=== PATIENT | male | born 1985 | race Hispanic/Latino ===

== ENCOUNTER 2022-11-09 08:56 | Emergency (ER) | payer SELFPAY ==
[2022-11-09] MEDS ORDERED: NA CHLORIDE 0.9% 1,000 ML ONE (09:31)
[2022-11-09] MEDS ORDERED: FAMOTIDINE 20 MG/2 ML VIAL IV ONE (09:31)
[2022-11-09] MEDS ORDERED: PANTOPRAZOLE 40 MG INJ ONE (09:31)
--- NOTE | 2022-11-09 09:41 | RAD REPORT ---
EXAM DESCRIPTION: RAD - Chest Pa And Lat (2 Views) - 11/09/2022 9:33 am CLINICAL HISTORY: dysphagia COMPARISON: Chest Pa And Lat (2 Views) dated 10/05/2015 FINDINGS: Lines: None. Lungs: No evidence of edema or pneumonia. Pleural: No significant pleural effusions or pneumothorax. Cardiac: The heart size is within normal limits. Mediastinum: Within normal limits. Bones: No acute fractures. Other: None IMPRESSION: No acute cardiopulmonary disease.
[2022-11-09 09:43] LABS: Specific Gravity 1.007 (1.005-1.030); Urine Bilirubin NEGATIVE (Negative); Urine Blood Negative (Negative); Urine Clarity Clear (Clear); Urine Color Colorless (Yellow); Urine Glucose NEGATIVE (Negative); Urine Protein NEGATIVE (Negative); Urine Urobilinogen Normal (Normal); Urine pH 6.5 (5.0-7.0)
[2022-11-09 09:43] LABS: Absolute Lymphocytes (CBC) 1.5 K/uL (0.7-4.9); Hematocrit 43.7 % (39.6-49.0); Lymphocytes % 33.1 % (15.3-44.8); MCV 84.2 fL (80-100); MPV 7.6 fL (7.6-11.3); RBC Red Blood Cell Count 5.18 M/uL (4.33-5.43)
[2022-11-09 10:02] LABS: Bilirubin Total 0.9 mg/dL (0.2-1.0); Potassium 3.7 mEq/L (3.5-5.1); Protein, Total 8.3 g/dL (6.4-8.2)
[2022-11-09 10:06] LABS: SARS-CoV-2 Antigen Rapid Res Negative (Negative)
--- NOTE | 2022-11-09 10:17 | ER ---
Nurse's Notes [facility] Name: Lennox Diaz Age: 37 yrs Sex: Male : 1985 Arrival Date: 11/09/2022 Time: 08:56 Bed 5 Private MD: Diagnosis: Gastro-esophageal reflux disease with esophagitis;Contact with and (suspected) exposure to other communicable diseases Presentation: 11/09 09:07 Chief complaint: Patient states: "I feel like food is not going all the way down to my jl7 stomach when I eat, like its stuck in my chest." Reports chest discomfort and burning with urination x 3 days. Coronavirus screen: At this time, the client does not indicate any symptoms associated with coronavirus-19. Ebola Screen: No symptoms or risks identified at this time. Initial Sepsis Screen: Does the patient meet any 2 criteria? No. Patient's initial sepsis screen is negative. Does the patient have a suspected source of infection? No. Patient's initial sepsis screen is negative. Risk Assessment: Do you want to hurt yourself or someone else? Patient reports no desire to harm self or others. Onset of symptoms was November 06, 2022. 09:07 Method Of Arrival: Ambulatory jl7 09:07 Acuity: CARLOS 3 jl7 Historical: - Allergies: 09:10 No Known Allergies; jl7 - Home Meds: 09:10 None [Active]; jl7 - PMHx: 09:10 Anxiety; Depression; jl7 - PSHx: 09:10 None; jl7 - Immunization history:: Adult Immunizations up to date. - Social history:: Smoking status: Patient denies any tobacco usage or history of. Screenin:26 [facility] ED Fall Risk Assessment (Adult) History of falling in the last 3 months, ld1 including since admission No falls in past 3 months (0 pts). Abuse screen: Denies threats or abuse. Denies injuries from another. Nutritional screening: No deficits noted. Tuberculosis screening: No symptoms or risk factors identified. Assessment: 09:26 General: Appears in no apparent distress. comfortable, Behavior is calm, cooperative, ld1 appropriate for age. Pain: Denies pain. Neuro: Level of Consciousness is awake, alert, obeys commands, Oriented to person, place, time, situation. Cardiovascular: Capillary refill < 3 seconds Patient's skin is warm and dry. Rhythm is sinus rhythm. Respiratory: Airway is patent Respiratory effort is even, unlabored. GI: Abdomen is flat, non-distended. : Reports burning with urination. EENT: No signs and/or symptoms were reported regarding the EENT system. Derm: No signs and/or symptoms reported regarding the dermatologic system. Musculoskeletal: No signs and/or symptoms reported regarding the musculoskeletal system. 11:01 Reassessment: DC HOME AMBULATORY. bp Vital Signs: 09:07 BP 148 / 87; Pulse 85; Resp 16; Temp 98.2; Pulse Ox 100% on R/A; Weight 90.72 kg; jl7 Height 5 ft. 9 in. ; Pain 2/10; 09:26 BP 148 / 87; Pulse 90; Resp 18; Pulse Ox 99% on R/A; ld1 11:01 BP 113 / 82; Pulse 72; Resp 16; Pulse Ox 100% ; bp 09:07 Body Mass Index 29.53 (90.72 kg, 175.26 cm) jl7 09:07 Pain Scale: Adult jl7 ED Course: 08:58 Patient arrived in ED. ts1 08:58 Roxi Corcoran FNP-C is PHCP. snw 08:58 Jong Chaudhari DO is Attending Physician. snw 09:02 Rodney Dang, RN is Primary Nurse. bp 09:10 Triage completed. jl7 09:10 Arm band placed on. jl7 09:26 Patient has correct armband on for positive identification. Placed in gown. Bed in low ld1 position. Call light in reach. Side rails up X2. residential monitor on. Pulse ox on. NIBP on. Door closed. Noise minimized. 09:26 Initial lab(s) drawn, by me, sent to lab. aw1 09:26 Urine collected: clean catch specimen, clear. aw1 09:26 Inserted saline lock: 20 gauge in right antecubital area, using aseptic technique. aw1 09:26 No provider procedures requiring assistance completed. ld1 09:35 Chest Pa And Lat (2 Views) XRAY In Process Unspecified. EDMS 09:40 SARS RAPID Sent. aw1 09:40 Strep Sent. aw1 09:40 COVID swab sent to lab. Strep swab sent to lab. aw1 11:01 IV discontinued, intact, bleeding controlled, No redness/swelling at site. Pressure bp dressing applied. Administered Medications: 09:25 Drug: NS 0.9% IV 1000 ml Route: IV; Rate: 1 bolus; Site: right antecubital; ld1 10:40 Follow up: IV Status: Completed infusion; IV Intake: 1000ml bp 09:25 Drug: Famotidine IVP 20 mg Route: IVP; Site: right antecubital; ld1 10:40 Follow up: Response: No adverse reaction bp 09:26 Drug: Pantoprazole IVP 40 mg Route: IVP; Site: right antecubital; ld1 10:40 Follow up: Response: No adverse reaction bp 10:30 Drug: Rocephin IV 1 grams Route: IV; Rate: calculated rate; Site: right antecubital; bp 11:03 Follow up: IV Status: Completed infusion; IV Intake: 1000ml bp 10:30 Drug: AZITHromycin PO 1 grams Route: PO; bp 11:03 Follow up: Response: No adverse reaction bp Medication: 11:01 VIS not applicable for this client. bp Intake: 10:40 IV: 1000ml; Total: 1000ml. bp 11:03 IV: 1000ml; Total: 2000ml. bp Outcome: 10:16 Discharge ordered by . snw 11:01 Discharged to home ambulatory. bp 11:01 Condition: stable 11:01 Discharge instructions given to patient, Instructed on discharge instructions, follow up and referral plans. medication usage, Demonstrated understanding of instructions, follow-up care, medications, Prescriptions given X 2. 11:03 Patient left the ED. bp Signatures: Dispatcher [employer] EDMS Roxi Corcoran, RESPIRATORY MEDICINE PHYSICIAN-C RESPIRATORY MEDICINE PHYSICIAN-Csnw Rock Mtz RN RN jl7 Rodney Dang RN RN bp Sandra Chaudhari RN RN ld1 Soraya Mcdonald PAS PAS ts1 Merced Kunz aw1
--- NOTE | 2022-11-09 10:18 | EDPHYS ---
Physician Documentation [facility] Name: Lennox Diaz Age: 37 yrs Sex: Male : 1985 Arrival Date: 11/09/2022 Time: 08:56 Bed 5 Private MD: ED Physician Jong Chaudhari HPI: 11/09 09:09 This 37 yrs old Male presents to ER via Unassigned with complaints of snw Difficulty Swallowing. 09:09 The patient presents with dysphagia, of both solids and liquids. The patient describes snw throat pain as pressure/slow to pass from lower esophagus, denies choking episode. Onset: The symptoms/episode began/occurred suddenly, 3 day(s) ago, and became worse just prior to arrival. Severity of symptoms: At their worst the symptoms were moderate. Associated signs and symptoms: The patient has no apparent associated signs or symptoms. The patient has not experienced similar symptoms in the past. The patient has not recently seen a physician. denies blood from above or below. Historical: - Allergies: 09:10 No Known Allergies; jl7 - Home Meds: 09:10 None [Active]; jl7 - PMHx: 09:10 Anxiety; Depression; jl7 - PSHx: 09:10 None; jl7 - Immunization history:: Adult Immunizations up to date. - Social history:: Smoking status: Patient denies any tobacco usage or history of. ROS: 09:10 Eyes: Negative for injury, pain, redness, and discharge, ENT: Negative for injury and snw discharge, + sore throat and lower esophagus 09:10 Neck: Negative for injury, pain, and swelling, Cardiovascular: Negative for chest pain, palpitations, and edema, Respiratory: Negative for shortness of breath, cough, wheezing, and pleuritic chest pain, Abdomen/GI: Negative for abdominal pain, nausea, vomiting, diarrhea, and constipation, Back: Negative for injury and pain, : Negative for injury, bleeding, discharge, and swelling, MS/Extremity: Negative for injury and deformity, Skin: Negative for injury, rash, and discoloration, Neuro: Negative for headache, weakness, numbness, tingling, and seizure, Psych: Negative for depression, anxiety, suicide ideation, homicidal ideation, and hallucinations. 09:10 Constitutional: Negative for fever, malaise, poor PO intake, weight loss. Exam: 09:08 Constitutional: This is a well developed, well nourished patient who is awake, alert, snw and in no acute distress. Head/Face: Normocephalic, atraumatic. Eyes: Pupils equal round and reactive to light, extra-ocular motions intact. Lids and lashes normal. Conjunctiva and sclera are non-icteric and not injected. Cornea within normal limits. Periorbital areas with no swelling, redness, or edema. Neck: Trachea midline, no thyromegaly or masses palpated, and no cervical lymphadenopathy. Supple, full range of motion without nuchal rigidity, or vertebral point tenderness. No Meningismus. Chest/axilla: Normal chest wall appearance and motion. Nontender with no deformity. No lesions are appreciated. Cardiovascular: Regular rate and rhythm with a normal S1 and S2. No gallops, murmurs, or rubs. Normal PMI, no JVD. No pulse deficits. Respiratory: Lungs have equal breath sounds bilaterally, clear to auscultation and percussion. No rales, rhonchi or wheezes noted. No increased work of breathing, no retractions or nasal flaring. Abdomen/GI: Soft, non-tender, with normal bowel sounds. No distension or tympany. No guarding or rebound. No evidence of tenderness throughout. Back: No spinal tenderness. No costovertebral tenderness. Full range of motion. MS/ Extremity: Pulses equal, no cyanosis. Neurovascular intact. Full, normal range of motion. Neuro: Awake and alert, GCS 15, oriented to person, place, time, and situation. Cranial nerves II-XII grossly intact. Motor strength 5/5 in all extremities. Sensory grossly intact. Cerebellar exam normal. Normal gait. 09:08 ENT: TM's: no acute changes, Nose: is normal, Mouth: is normal, Posterior pharynx: erythema, that is mild, Voice: is normal. 09:08 Skin: Appearance: normal except for affected area, Color: pale. 09:08 Psych: Behavior/mood is pleasant, cooperative, anxious, Affect is calm. Vital Signs: 09:07 BP 148 / 87; Pulse 85; Resp 16; Temp 98.2; Pulse Ox 100% on R/A; Weight 90.72 kg; jl7 Height 5 ft. 9 in. ; Pain 2/10; 09:26 BP 148 / 87; Pulse 90; Resp 18; Pulse Ox 99% on R/A; ld1 11:01 BP 113 / 82; Pulse 72; Resp 16; Pulse Ox 100% ; bp 09:07 Body Mass Index 29.53 (90.72 kg, 175.26 cm) 7 09:07 Pain Scale: Adult jl7 MDM: 08:59 Patient medically screened. snw 09:11 Differential diagnosis: Allergic rhinitis, bronchitis, group A strep tonsillitis, snw pharyngitis, retropharyngeal abcess viral syndrome. 10:20 Data reviewed: vital signs, nurses notes, lab test result(s), radiologic studies. snw Counseling: I had a detailed discussion with the patient and/or guardian regarding: the historical points, exam findings, and any diagnostic results supporting the discharge/admit diagnosis, the presence of at least one elevated blood pressure reading (>120/80) during this emergency department visit, lab results, radiology results, the need for outpatient follow up, to return to the emergency department if symptoms worsen or persist or if there are any questions or concerns that arise at home. Response to treatment: the patient's symptoms have mildly improved after treatment. Special discussion: Based on the patient's Hx, exam, and Dx evaluation, there is no indication for emergent surgery or inpatient Tx. It is understood by the patient/guardian that if the Sx's persist or worsen they need to return immediately for re-evaluation. I have referred the patient to see his PCP for further evaluation of high blood pressure. Based on the history and exam findings, there is no indication for further emergent testing or inpatient evaluation. I discussed with the patient/guardian the need to see the health education specialist for further evaluation of the symptoms. I discussed with the patient/guardian the need to see the primary care provider for further evaluation of the symptoms. 11/09 09:08 Order name: CBC with Diff; Complete Time: 09:51 snw 11/09 09:08 Order name: CMP; Complete Time: 10:08 snw 11/09 09:08 Order name: Lipase; Complete Time: 10:08 snw 11/09 09:08 Order name: Urinalysis w/ reflexes; Complete Time: 09:44 snw 11/09 09:08 Order name: Strep snw 11/09 09:08 Order name: SARS RAPID; Complete Time: 10:08 snw 11/09 10:19 Order name: Throat Culture EDMS 11/09 09:08 Order name: Chest Pa And Lat (2 Views) XRAY; Complete Time: 09:44 snw 11/09 09:08 Order name: IV Saline Lock; Complete Time: 09:26 snw 11/09 09:08 Order name: Labs collected and sent; Complete Time: 09:26 snw Administered Medications: 09:25 Drug: NS 0.9% IV 1000 ml Route: IV; Rate: 1 bolus; Site: right antecubital; ld1 10:40 Follow up: IV Status: Completed infusion; IV Intake: 1000ml bp 09:25 Drug: Famotidine IVP 20 mg Route: IVP; Site: right antecubital; ld1 10:40 Follow up: Response: No adverse reaction bp 09:26 Drug: Pantoprazole IVP 40 mg Route: IVP; Site: right antecubital; ld1 10:40 Follow up: Response: No adverse reaction bp 10:30 Drug: Rocephin IV 1 grams Route: IV; Rate: calculated rate; Site: right antecubital; bp 11:03 Follow up: IV Status: Completed infusion; IV Intake: 1000ml bp 10:30 Drug: AZITHromycin PO 1 grams Route: PO; bp 11:03 Follow up: Response: No adverse reaction bp Disposition: 09:25 PA/SCRAP BREAKER's history reviewed, patient interviewed, and examined. HPI: 37-year-old male with ms3 past medical history of anxiety and depression presents for difficulty with swallowing for 3 days. Patient states it is as if the food is slow to go down his esophagus after swallowing. Patient notes he is also having dysuria and urinary frequency. Patient states he had sexual relations with a female a while back. My personal exam of patient reveals: On exam patient is alert and oriented x4, no apparent distress, nontoxic-appearing, speaking full sentences. Heart rate and rhythm are regular without murmurs rubs or gallops. Lungs clear to auscultation bilaterally. Abdomen is nontender to palpation with bowel sounds present. Skin is without rashes. Oropharynx with erythema, no exudates. Disposition Summary: 11/09/22 10:16 Discharge Ordered Location: Home snw Condition: Stable snw Diagnosis - Gastro-esophageal reflux disease with esophagitis snw - Contact with and (suspected) exposure to other communicable diseases snw Followup: snw - With: Emergency Department - When: As needed - Reason: Worsening of condition Followup: snw - With: Private Physician - When: 1 - 2 days - Reason: Recheck today's complaints, Continuance of care, Re-evaluation by your physician Discharge Instructions: - Discharge Summary Sheet snw - Food Choices for Gastroesophageal Reflux Disease, Adult snw - Esophagitis snw - Gastroesophageal Reflux Disease, Adult snw - Preventing Sexually Transmitted Infections, Adult snw Forms: - Work release form snw - Medication Reconciliation Form snw - Thank You Letter snw - Antibiotic Education snw - Prescription Opioid Use snw - Patient Portal Instructions snw Prescriptions: - Flagyl 500 mg Oral Tablet - take 1 tablet by ORAL route every 12 hours for 7 days; 14 tablet; Refills: 0, snw Product Selection Permitted - Protonix 40 mg Oral Tablet - take 1 tablet by ORAL route once daily; 30 tablet; Refills: 0, Product snw Selection Permitted Signatures: Dispatcher [employer] EDMS Roxi Corcoran, OPERATIONAL RISK CONSULTANT-C OPERATIONAL RISK CONSULTANT-Csnw Rock Mtz RN RN jl7 Rodney Dang RN RN bp Jong Chaudhari DO DO ms3 Sandra Chaudhari RN RN ld1
[2022-11-09] MEDS ORDERED: AZITHROMYCIN 250 MG TAB ONE (10:41)
[2022-11-09] MEDS ORDERED: CEFTRIAXONE 1000 MG/VIAL ONE (10:42)
[2022-11-09] MEDS ORDERED: NA CHLORIDE 0.9% 100 ML ONE (10:42)
[2022-11-09 11:09] VITALS: TEMP 98.2
[2022-11-09 11:12] VITALS: BP 113/82; O2SAT 100
== END 2022-11-09 11:03 | disposition home or self-care (01) ==
LOC: ER 08:56
DX: K21.00 Gastro-esophageal reflux disease with esophagitis, without bleeding (principal); Z20.89 Contact with and (suspected) exposure to other communicable diseases
CPT/HCPCS: 36415; 71046; 80053; 81003; 83690; 85025; 87070; 87081; 87811; 96361; 96365; 96375; 99285; C9113; J0696; J7030